=== PATIENT | female | born 1930 | race Caucasian/White ===

== ENCOUNTER 2017-10-20 16:15 | Emergency (ER) | payer OTHER ==
[~2017-10-20] VITALS: Ht 162.6 cm; Wt 63.5 kg
[~2017-10-20 16:15] MED LIST: ACETAMINOPHEN325 M1 PO; ALPRAZOLAM PO; AMBEREN; AMBEREN PO; APAP500; AUGMENTIN 875875 MG PO; B-COMPLEX-VITA1 EACH PO; BACTRIM DS TAB1 EACH PO; BISAC-EVAC10 MG; CALCIUM OYSTER500 MG PO; CALCIUM PO; CARITA; CARITA PO; CIPROFLOXACIN500 M1 PO; COLACE100 MG PO; DILTIAZEM 24HR180 MG; DILTIAZEM ER120 M1 PO; DILTIAZEM ER180 MG PO; DULCOLAX STOOL100 MG PO; FISH OIL 1,001000 M1 PO; FISHOIL PO; GLUCOSAMINE &1 EACH PO; GLUCOSAMINE S1000 M2 PO; IBUPROFEN 400400 M2 PO; LEVOTHYROXINE 0.1 MG PO; LEXAPRO 10 MG T10 MG PO; LEXAPRO20 MG PO; LOVENOX SQ; LYRICA; LYRICA100 MG PO; MEDROLDOSEPACK PO; MIRALAX255 GM; MISC; MULTIVITAMINS OR; MULTIVITAMINS PO; NORCO 5-325 TA1 EACH PO; OMEPRAZOLE20 M2 PO; PREMARIN VAGI42.5 G1 VAG; PREVACID 30MG C30 M1 PO; PROAIR HFA8.5 GM INH; REFRESH CLASSI1 EACH OPHTHALMIC; ROXICODONE5 M1 PO; SEE COMMENT; SEE COMMENTS; SYMBICORT80 MCG/4.1 INH; TUMS PO; VAGICAINE CREAM28 GM TOP; VISION; XANAX 0.25 MG0.25 MG PO; ZOFRAN4 MG PO; [UNRECOGNIZED DRUG - OTHER]; [UNRECOGNIZED DRUG - OTHER] PO
[2017-10-20 18:01] VITALS: BP 138/63
== END 2017-10-20 18:01 | disposition home or self-care (01) ==
LOC: M.ERS 16:15
DX: S09.8XXA Other specified injuries of head, initial encounter (principal); I10 Essential (primary) hypertension; K21.9 Gastro-esophageal reflux disease without esophagitis; J45.909 Unspecified asthma, uncomplicated; F41.0 Panic disorder [episodic paroxysmal anxiety]; Z96.643 Presence of artificial hip joint, bilateral; Z96.622 Presence of left artificial elbow joint; Z85.841 Personal history of malignant neoplasm of brain; Z88.2 Allergy status to sulfonamides; W01.190A Fall on same level from slipping, tripping and stumbling with subsequent striking against furniture, initial encounter; Y93.89 Activity, other specified; Y92.89 Other specified places as the place of occurrence of the external cause; Y99.8 Other external cause status

== ENCOUNTER → 2017-11-25 | Outpatient (CLI) | payer OTHER | LOC: M.RAD 10:50 | DX: Z12.31 Encounter for screening mammogram for malignant neoplasm of breast (principal) ==

== ENCOUNTER → 2018-07-01 | Outpatient (CLI) | payer OTHER | LOC: M.ULTRA 14:31 | DX: M79.605 Pain in left leg (principal); M79.89 Other specified soft tissue disorders ==

== ENCOUNTER → 2018-09-07 | Outpatient (CLI) | payer OTHER | LOC: M.MRI 16:12 | DX: S83.262A Peripheral tear of lateral meniscus, current injury, left knee, initial encounter (principal); M17.12 Unilateral primary osteoarthritis, left knee; R60.0 Localized edema; M25.462 Effusion, left knee; W19.XXXA Unspecified fall, initial encounter; Y93.89 Activity, other specified; Y92.89 Other specified places as the place of occurrence of the external cause; Y99.8 Other external cause status ==

== ENCOUNTER 2019-03-23 22:44 | Inpatient (IN) | payer OTHER ==
[~2019-03-23] VITALS: Ht 162.6 cm; Wt 63.4 kg
--- NOTE | ~2019-03-23 | CON ---
[address] [address] CONSULTATION Name: BREANA ZAPATA Room: [address] IN ..#: [id number] Admission: 03/23/19 Attend Phys: José Miguel Zamora MD Discharge: Date of : 31 Report #: [id number] THIS REPORT FOR: //name// CC: José Miguel Mclean [facility] DICTATED BY: Mary Jane Hou [facility] DATE OF SERVICE: 03/24/2019 Please note at the time of this dictation, the patient was seen and physically examined by myself. REASON FOR CONSULTATION: Rectal bleeding. HISTORY OF PRESENT ILLNESS: This is an 88-year-old female presented to the Emergency Room with having some rectal bleeding, which she noted on a pad over the last 2 days. She states it is bright red in nature and she states that she notices it more every time she urinates and with wiping. Her bowels have been soft and formed and moving daily, last bowel movement was yesterday a.m. She denies any pain with any defecation or with the bleeding at this time. She denies any nausea, vomiting, abdominal pain, fever or chills at this time. The patient did undergo a colonoscopy back in 2010, by Dr. Vidal that showed sigmoid diverticulosis and internal hemorrhoids, which she was banded for x 4. She does have a history of colon polyps in the past that were tubular adenoma. The patient was recently placed on Eliquis on 03/03/2019, for a TIA. ALLERGIES: SULFA. MEDICATIONS: From home, estrogen, glucosamine, omeprazole, Lyrica, multivitamin, Dulcolax stool softener, Synthroid, diltiazem, Lexapro, Eliquis, Lipitor, Xanax. PAST MEDICAL HISTORY: Recent transient ischemic attack, history of SVT, anxiety, asthma, GERD, hypertension, history of a brain tumor, blind behind the left eye. PAST SURGICAL HISTORY: Right total hip, she has had a revision; left elbow replacement; left total hip replacement; cataracts; hysterectomy; cystocele and rectocele repair; cholecystectomy and a thyroidectomy. FAMILY HISTORY: Negative for any GI or female cancers. SOCIAL HISTORY: , lives with her . Denies any alcohol, tobacco [place] [address] CONSULTATION Name: BREANA ZAPATA Jessie Room: [address]#: [id number] Admission: 03/23/19 Attend Phys: José Miguel Zamora MD Discharge: Date of : 31 Report #: [id number] REVIEW OF SYSTEMS: Twelve-point review of systems is essentially negative except what is mentioned in the HPI. PHYSICAL EXAMINATION: VITAL SIGNS: Temperature 36.6, pulse 80, respirations 18, blood pressure 129/51. HEART: Regular rate and rhythm. LUNGS: Clear. ABDOMEN: Soft, positive bowel sounds in all 4 quadrants with no masses or tenderness noted. RECTAL: Noted some bright red blood with apparent likely external hemorrhoids noted. Internal exam noting some blood, but no masses or tenderness noted on internal exam. LABORATORY DATA: Hemoglobin 14.5, white count 5.5, platelets 198, GFR 79. Total bilirubin 0.4, alkaline phosphatase 153, ALT 28, AST is 23. PT is 10.3, INR is 1. IMPRESSION: 1. Rectal bleeding. 2. Hemorrhoids. 3. Anticoagulant therapy, Eliquis for transient ischemic attack started on 03/03. 4. History of colon polyps, tubular adenoma in the past. PLAN: 1. Clear liquids. 2. We will await Neurology input regarding anticoagulant therapy. 3. Further recommendations to follow after Dr. Hill sees the patient later today. Thank you for allowing us to participate in this patient's care. Please do not hesitate to call with any questions in regard to this consult. By: 1100 1510Javier Hill DO /nt
[2019-03-23 22:52] VITALS: BP 145/66
[2019-03-23] MEDS ORDERED: ELIQUIS5 MG PO (22:59)
[2019-03-23] MEDS ORDERED: LIPITOR80 MG PO (23:00)
[2019-03-23] MEDS ORDERED: XANAX 0.25 MG0.25 MG PO (23:00)
[2019-03-23 23:45] LABS: ABSOLUTE BASOPHILS 0.1 thou/uL (0.0-0.2); ABSOLUTE EOSINOPHILS 0.2 thou/uL (0.0-0.7); ABSOLUTE LYMPHOCYTES 3.7 thou/uL (0.8-5.3); ABSOLUTE MONOCYTES 0.6 thou/uL (0.0-1.2); ABSOLUTE NEUTROPHILS 3.6 thou/uL (1.6-8.1); EOSINOPHILS 2.6 %; HEMATOCRIT 41.1 % (37.0-47.0); MCH 30.1 pg (26.0-34.0); MCV 88.6 fL (80.0-100.0); MONOCYTES 7.8 %; MPV 8.5 fl. (7.2-11.1); NUCLEATED RBCS 0 /100WBC; PLATELET COUNT* 203 thou/uL (150-400); POLYS 43.6 %; RBC 4.64 mil/uL (4.20-5.00); RDW-CV 13.8 % (10.5-14.5); WBC 8.2 thou/uL (4.0-11.0)
[2019-03-23 23:55] LABS: CALCIUM 8.9 mg/dL (8.5-10.1); CREATININE 0.8 mg/dL (0.6-1.3); POTASSIUM 3.6 mmol/L (3.5-5.1)
[2019-03-23 23:58] LABS: APTT 27.1 Seconds (25.0-31.3); PROTIME 10.3 Seconds (9.20-11.50)
[2019-03-24 00:08] LABS: ALBUMIN 3.4 g/dL (3.4-5.0); TOTAL BILIRUBIN 0.4 mg/dL (<0.1-1.0); TOTAL PROTEIN 6.9 g/dL (6.4-8.2)
[2019-03-24 02:13] VITALS: BP 145/58
[2019-03-24 02:30] VITALS: BP 129/66
[2019-03-24 04:00] VITALS: BP 158/70
[2019-03-24 07:57] VITALS: BP 129/51
[2019-03-24 08:40] LABS: HEMATOCRIT 42.1 % (37.0-47.0); HEMOGLOBIN 14.5 gm/dL (12.0-15.0); MCH 30.5 pg (26.0-34.0); MCHC 34.4 g/dL (28.0-37.0); MCV 88.7 fL (80.0-100.0); MPV 8.8 fl. (7.2-11.1); RBC 4.74 mil/uL (4.20-5.00); RDW-CV 13.7 % (10.5-14.5); WBC 5.5 thou/uL (4.0-11.0)
[2019-03-24 08:49] LABS: CALCIUM 9.1 mg/dL (8.5-10.1); CREATININE 0.7 mg/dL (0.6-1.3); POTASSIUM 3.6 mmol/L (3.5-5.1)
[2019-03-24 12:50] LABS: URINE BILIRUBIN NEGATIVE (Negative); URINE BLOOD TRACE (Negative); URINE CLARITY CLEAR; URINE COLOR YELLOW; URINE GLUCOSE-RANDOM NEGATIVE (Negative); URINE KETONES NEGATIVE (Negative); URINE LEUKOCYTES-REFLEX NEGATIVE (Negative); URINE NITRITE-REFLEX NEGATIVE (Negative); URINE PROTEIN NEGATIVE (Negative); URINE SPECIFIC GRAVITY <= 1.005 (1.005-1.030); URINE UROBILINOGEN 0.2 E.U./dl (0.2-1.0)
[2019-03-24 15:48] VITALS: BP 134/66
[2019-03-24 20:00] VITALS: BP 135/58
[2019-03-25] VITALS (7 sets, daily range): BP systolic 116–148; BP diastolic 52–69
[2019-03-25 04:51] LABS: HEMATOCRIT 40.1 % (37.0-47.0); HEMOGLOBIN 13.9 gm/dL (12.0-15.0); MCH 30.5 pg (26.0-34.0); MCHC 34.7 g/dL (28.0-37.0); RBC 4.56 mil/uL (4.20-5.00); WBC 7.6 thou/uL (4.0-11.0)
[2019-03-25 04:59] LABS: CALCIUM 9.2 mg/dL (8.5-10.1); CREATININE 0.6 mg/dL (0.6-1.3); POTASSIUM 3.3 mmol/L (3.5-5.1)
[2019-03-26] VITALS: BP 122/52
[2019-03-26 04:00] VITALS: BP 112/47
[2019-03-26 04:22] LABS: ABSOLUTE EOSINOPHILS 0.1 thou/uL (0.0-0.7); ABSOLUTE LYMPHOCYTES 2.8 thou/uL (0.8-5.3); ABSOLUTE MONOCYTES 0.6 thou/uL (0.0-1.2); ABSOLUTE NEUTROPHILS 4.1 thou/uL (1.6-8.1); BASOPHILS 0.6 %; EOSINOPHILS 1.1 %; HEMATOCRIT 40.2 % (37.0-47.0); HEMOGLOBIN 13.7 gm/dL (12.0-15.0); LYMPHOCYTES 36.5 %; MCH 30.3 pg (26.0-34.0); MCHC 34.1 g/dL (28.0-37.0); MCV 88.8 fL (80.0-100.0); MONOCYTES 8.4 %; MPV 8.7 fl. (7.2-11.1); NUCLEATED RBCS 0 /100WBC; PLATELET COUNT* 211 thou/uL (150-400); POLYS 53.4 %; RBC 4.52 mil/uL (4.20-5.00); RDW-CV 13.7 % (10.5-14.5); WBC 7.7 thou/uL (4.0-11.0)
[2019-03-26 04:34] LABS: CALCIUM 9.3 mg/dL (8.5-10.1); CREATININE 0.7 mg/dL (0.6-1.3); POTASSIUM 3.7 mmol/L (3.5-5.1)
[2019-03-26 08:00] VITALS: BP 117/58
--- NOTE | 2019-03-26 11:01 | CON ---
[address] [address] CONSULTATION Name: BREANA ZAPATA Room: [address] IN .R.#: [id number] Admission: 03/23/19 Attend Phys: José Miguel Zamora MD Discharge: Date of : 31 Report #: [id number] THIS REPORT FOR: //name// CC: José Miguel Velasquez DATE OF SERVICE: 03/25/2019 HISTORY OF PRESENT ILLNESS: Thank you for allowing us to see the patient. She is a very pleasant 88-year-old female with a history of paroxysmal atrial fibrillation, supraventricular tachycardia and recent left hemispheric CVA with a total clearing of symptoms after hospitalization at [facility]. The patient was placed on Eliquis 5 mg b.i.d. She developed rectal bleeding and sought admission in that context. There was no significant depression in hemoglobin with the stools were red. She has had prior colonoscopic evidence for hemorrhoids. The patient denies chest pain or dyspnea. She denies any awareness of rapid or irregular pulse. She notes the clearing of the aforementioned neurologic symptoms. There is underlying hypertension and hypercholesterolemia. Prior medicines have included Eliquis 5 mg b.i.d., atorvastatin 80 mg daily, diltiazem 180 mg b.i.d., L-thyroxine 0.1 mg daily and a number of noncardiac medicines including docusate, Lexapro, glucosamine, estrogens, multivitamin, omeprazole, and Lyrica. PAST MEDICAL HISTORY: Remarkable for hypothyroidism, prior CVA, paroxysmal atrial fibrillation, gastroesophageal reflux disease and severe anxiety. SOCIAL HISTORY: The patient is . She is a nonsmoker and nondrinker. REVIEW OF SYSTEMS: Remarkable for the following positives. RESPIRATORY: She notes some wheezing. GASTROINTESTINAL: History of gastroesophageal reflux disease. ALLERGIC AND IMMUNOLOGIC: She notes medication allergies to SULFA. PSYCHIATRIC: There is a history of chronic anxiety. EYES: She has a diminution in visual acuity. Remainder is unremarkable. PHYSICAL EXAMINATION: GENERAL: Demonstrates an elderly female in no acute distress. VITAL SIGNS: Blood pressure 140/70, pulse rate 74 and regular, respirations are 18 per minute. NECK: Jugular venous [place] [address] CONSULTATION Name: BREANA ZAPATA Room: [address]#: [id number] Admission: 03/23/19 Attend Phys: José Miguel Zamora MD Discharge: Date of : 31 Report #: [id number] CHEST: Clear. CARDIAC: Reveals normal first and second heart sounds with a faint early systolic murmur, without rubs or gallops. ABDOMEN: Mildly obese. EXTREMITIES: Without edema with intact peripheral pulses. There are no deforming arthritic changes. No petechiae or ecchymosis are noted. LABORATORY DATA: Remarkable for hemoglobin of 13.9, white blood cell count of 7600 with 200,000 platelets. IMPRESSION: 1. Recent left hemispheric cerebrovascular accident. 2. Paroxysmal atrial fibrillation. 3. History of supraventricular tachycardia. 4. Hypercholesterolemia. 5. Chronic anxiety. 6. Hypothyroidism. 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 The patient is reluctant to do so by virtue of the GI bleeding. I reinforced the evidence for lack of significant bleed as the hemoglobin did not drop significantly. Nevertheless, she is extremely reluctant to take an oral anticoagulant. We talked at length, and she agreed to start the Eliquis at 2.5 mg b.i.d. with the hope that we can up titrate to the appropriate therapeutic dose for her 5 mg b.i.d. Thank you for allowing us to see the patient in cardiovascular assessment. <ELECTRONICALLY SIGNED> By: Chidi Owen MD, [facility] 03/26/19 1101 1036 1234Chidi Owen MD, FAC /nt
[2019-03-26 12:31] VITALS: BP 133/66
[2019-03-26 16:48] VITALS: BP 141/64
[2019-03-26 20:00] VITALS: BP 137/69
[2019-03-27] VITALS: BP 140/78
[2019-03-27 04:00] VITALS: BP 123/53
[2019-03-27 05:36] LABS: HEMATOCRIT 38.2 % (37.0-47.0); MCH 30.3 pg (26.0-34.0); MCHC 34.1 g/dL (28.0-37.0); MCV 88.9 fL (80.0-100.0); MPV 8.9 fl. (7.2-11.1); PLATELET COUNT* 197 thou/uL (150-400); RDW-CV 13.9 % (10.5-14.5); WBC 6.7 thou/uL (4.0-11.0)
[2019-03-27 06:03] LABS: CREATININE 0.6 mg/dL (0.6-1.3); MAGNESIUM 1.7 mg/dL (1.8-2.4); POTASSIUM 3.4 mmol/L (3.5-5.1)
[2019-03-27 08:00] VITALS: BP 145/70
[2019-03-27 10:19] LABS: ABSOLUTE MONOCYTES 0.6 thou/uL (0.0-1.2); ABSOLUTE NEUTROPHILS 3.8 thou/uL (1.6-8.1); LYMPHOCYTES 30.5 %; MONOCYTES 8.9 %; POLYS 57.1 %
[2019-03-27 10:20] LABS: ABSOLUTE BASOPHILS 0.1 thou/uL (0.0-0.2); ABSOLUTE EOSINOPHILS 0.2 thou/uL (0.0-0.7); BASOPHILS 1.1 %; EOSINOPHILS 2.4 %
[2019-03-27 14:00] VITALS: BP 138/61
[2019-03-27 16:03] VITALS: BP 142/61
[2019-03-28] VITALS: BP 142/60
[2019-03-28 04:00] VITALS: BP 150/60
[2019-03-28 08:29] VITALS: BP 135/51
[2019-03-28 12:25] VITALS: BP 142/73
[2019-03-28 20:00] VITALS: BP 143/60
[2019-03-29] VITALS (7 sets, daily range): BP systolic 126–151; BP diastolic 55–81
[2019-03-29 10:54] LABS: ABSOLUTE LYMPHOCYTES 1.8 thou/uL (0.8-5.3); ABSOLUTE MONOCYTES 0.7 thou/uL (0.0-1.2); ABSOLUTE NEUTROPHILS 7.8 thou/uL (1.6-8.1); BASOPHILS 0.2 %; EOSINOPHILS 0.1 %; HEMATOCRIT 37.1 % (37.0-47.0); HEMOGLOBIN 13.2 gm/dL (12.0-15.0); LYMPHOCYTES 17.4 %; MCH 30.3 pg (26.0-34.0); MCHC 35.7 g/dL (28.0-37.0); MCV 84.8 fL (80.0-100.0); MONOCYTES 6.9 %; MPV 7.9 fl. (7.2-11.1); NUCLEATED RBCS 0 /100WBC; PLATELET COUNT* 181 thou/uL (150-400); POLYS 75.4 %; RBC 4.37 mil/uL (4.20-5.00); RDW-CV 13.2 % (10.5-14.5); WBC 10.3 thou/uL (4.0-11.0)
[2019-03-29 11:12] LABS: ALBUMIN 3.5 g/dL (3.4-5.0); CALCIUM 8.2 mg/dL (8.5-10.1); CREATININE 0.5 mg/dL (0.6-1.3); TOTAL BILIRUBIN 0.9 mg/dL (<0.1-1.0); TOTAL PROTEIN 6.6 g/dL (6.4-8.2)
[2019-03-29 11:15] LABS: POTASSIUM 2.4 mmol/L (3.5-5.1)
[2019-03-30] VITALS: BP 133/62
[2019-03-30 04:00] VITALS: BP 133/72
[2019-03-30 05:12] LABS: HEMATOCRIT 36.7 % (37.0-47.0); MCH 30.4 pg (26.0-34.0); MCHC 35.4 g/dL (28.0-37.0); MCV 85.8 fL (80.0-100.0); MPV 8.9 fl. (7.2-11.1); RBC 4.27 mil/uL (4.20-5.00); RDW-CV 13.5 % (10.5-14.5); WBC 9.2 thou/uL (4.0-11.0)
[2019-03-30 05:30] LABS: ALBUMIN 3.2 g/dL (3.4-5.0); CREATININE 0.6 mg/dL (0.6-1.3); MAGNESIUM 1.9 mg/dL (1.8-2.4); POTASSIUM 3.9 mmol/L (3.5-5.1); TOTAL BILIRUBIN 0.7 mg/dL (<0.1-1.0); TOTAL PROTEIN 6.2 g/dL (6.4-8.2)
[2019-03-30 08:00] VITALS: BP 132/60
[2019-03-30] MEDS ORDERED: TRAMADOL 50 MG50 MG PO (10:35)
[2019-03-30] MEDS ORDERED: ELIQUIS5 MG PO (10:35)
[2019-03-30 11:45] VITALS: BP 140/60
[2019-03-30 12:00] VITALS: BP 135/63
[2019-03-30 12:47] VITALS: BP 140/60
== END 2019-03-30 13:30 | disposition home health service (06) | DRG 393 ==
LOC: M.ERS 22:44 → M.2W 23:53 → M.TBA-ER 23:53 → M.2W 03-24 02:22
PROVIDERS: Internal Medicine; Internal Medicine Gastroenterology; Personal Emergency Response Attendant; ADMIT Internal Medicine
PROC: 0DJD8ZZ Inspection of Lower Intestinal Tract, Via Natural or Artificial Opening Endoscopic (ICD-10-PCS; principal; 2019-03-27)
PROC: 0D758ZZ Dilation of Esophagus, Via Natural or Artificial Opening Endoscopic (ICD-10-PCS; principal; 2019-03-27)
DX: K64.8 Other hemorrhoids (principal); K57.31 Diverticulosis of large intestine without perforation or abscess with bleeding; D68.69 Other thrombophilia; Q21.1 Atrial septal defect; Q39.9 Congenital malformation of esophagus, unspecified; Z96.622 Presence of left artificial elbow joint; I10 Essential (primary) hypertension; K21.9 Gastro-esophageal reflux disease without esophagitis; J45.909 Unspecified asthma, uncomplicated; F41.9 Anxiety disorder, unspecified; E78.00 Pure hypercholesterolemia, unspecified; I48.0 Paroxysmal atrial fibrillation; R13.10 Dysphagia, unspecified; K44.9 Diaphragmatic hernia without obstruction or gangrene; E89.0 Postprocedural hypothyroidism; R13.14 Dysphagia, pharyngoesophageal phase; K64.1 Second degree hemorrhoids; K64.4 Residual hemorrhoidal skin tags; H54.62 Unqualified visual loss, left eye, normal vision right eye; Z96.642 Presence of left artificial hip joint; Z98.42 Cataract extraction status, left eye; Z79.01 Long term (current) use of anticoagulants; Z98.41 Cataract extraction status, right eye; Z90.710 Acquired absence of both cervix and uterus; Z90.49 Acquired absence of other specified parts of digestive tract; Z86.73 Personal history of transient ischemic attack (TIA), and cerebral infarction without residual deficits; Z88.2 Allergy status to sulfonamides; Z88.8 Allergy status to other drugs, medicaments and biological substances; Z86.010 Personal history of colon polyps; Z79.899 Other long term (current) drug therapy

== ENCOUNTER 2019-05-30 17:14 | Inpatient (IN) | payer OTHER ==
[~2019-05-30] VITALS: Ht 162.6 cm; Wt 66.7 kg
[~2019-05-30 17:14] MED LIST changes: +ELIQUIS5 MG PO; +LIPITOR80 MG PO; +TRAMADOL 50 MG50 MG PO
[2019-05-30 17:23] VITALS: BP 144/71
[2019-05-30 17:37] LABS: URINE BILIRUBIN NEGATIVE (Negative); URINE BLOOD NEGATIVE (Negative); URINE CLARITY SL CLOUDY; URINE COLOR YELLOW; URINE GLUCOSE-RANDOM NEGATIVE (Negative); URINE KETONES NEGATIVE (Negative); URINE PROTEIN NEGATIVE (Negative); URINE UROBILINOGEN 0.2 E.U./dl (0.2-1.0)
[2019-05-30 17:39] LABS: URINE LEUKOCYTES-REFLEX 3+ (Negative); URINE NITRITE-REFLEX POSITIVE (Negative)
[2019-05-30 17:45] LABS: ABSOLUTE BASOPHILS 0.1 thou/uL (0.0-0.2); ABSOLUTE EOSINOPHILS 0.2 thou/uL (0.0-0.7); ABSOLUTE MONOCYTES 0.6 thou/uL (0.0-1.2); ABSOLUTE NEUTROPHILS 4.2 thou/uL (1.6-8.1); BASOPHILS 1.2 %; EOSINOPHILS 2.4 %; HEMATOCRIT 44.4 % (37.0-47.0); HEMOGLOBIN 15.2 gm/dL (12.0-15.0); LYMPHOCYTES 36.7 %; MCH 30.2 pg (26.0-34.0); MCHC 34.3 g/dL (28.0-37.0); MCV 88.2 fL (80.0-100.0); MONOCYTES 7.8 %; MPV 8.1 fl. (7.2-11.1); NUCLEATED RBCS 0 /100WBC; PLATELET COUNT* 310 thou/uL (150-400); POLYS 51.9 %; RBC 5.03 mil/uL (4.20-5.00); RDW-CV 13.9 % (10.5-14.5); WBC 8.1 thou/uL (4.0-11.0)
[2019-05-30 17:45] LABS: MUCUS None Seen strn/LPF (None Seen); SQUAMOUS >10 Many /LPF (0-3)
[2019-05-30 17:46] LABS: BACTERIA-REFLEX >30 Many /HPF (None Seen); CASTS None Seen /LPF (None Seen); CRYSTALS None Seen /LPF (None Seen); URINE RBC None Seen /HPF (0-2); URINE WBC-REFLEX >25 Many /HPF (0-5)
[2019-05-30 17:53] LABS: CALCIUM 8.9 mg/dL (8.5-10.1); CREATININE 0.7 mg/dL (0.6-1.3); POTASSIUM 3.9 mmol/L (3.5-5.1)
[2019-05-30 17:58] LABS: ALBUMIN 3.8 g/dL (3.4-5.0); TOTAL BILIRUBIN 0.3 mg/dL (<0.1-1.0); TOTAL PROTEIN 7.6 g/dL (6.4-8.2)
[2019-05-30 20:02] VITALS: BP 125/60
[2019-05-30 20:20] VITALS: BP 150/73
[2019-05-31 09:10] VITALS: BP 153/69
[2019-05-31] MEDS ORDERED: TIMOLOL MA0.25 %/52 OPHTHALMIC (09:30)
[2019-05-31 15:33] VITALS: BP 138/64
[2019-05-31 20:05] VITALS: BP 124/61
[2019-06-01 04:20] LABS: CALCIUM 8.3 mg/dL (8.5-10.1); CREATININE 0.6 mg/dL (0.6-1.3); MAGNESIUM 2.2 mg/dL (1.8-2.4); POTASSIUM 3.5 mmol/L (3.5-5.1)
[2019-06-01 08:11] VITALS: BP 111/71
[2019-06-01 16:00] VITALS: BP 95/43
[2019-06-01 21:40] VITALS: BP 134/66
[2019-06-02 08:45] VITALS: BP 136/71
[2019-06-02] MEDS ORDERED: CIPRO500 MG PO (12:15)
[2019-06-02 13:44] VITALS: BP 136/71
[2019-06-02 14:52] VITALS: BP 136/71
== END 2019-06-02 14:55 | disposition home or self-care (01) | DRG 689 ==
LOC: M.ERS 17:14 → M.TBA-ER 18:55 → M.3W 18:55
PROVIDERS: Internal Medicine; Personal Emergency Response Attendant; ADMIT Internal Medicine
DX: N30.90 Cystitis, unspecified without hematuria (principal); G92 Toxic encephalopathy; B37.2 Candidiasis of skin and nail; Z96.642 Presence of left artificial hip joint; I10 Essential (primary) hypertension; J45.909 Unspecified asthma, uncomplicated; E89.0 Postprocedural hypothyroidism; F41.9 Anxiety disorder, unspecified; K21.9 Gastro-esophageal reflux disease without esophagitis; G62.9 Polyneuropathy, unspecified; K57.90 Diverticulosis of intestine, part unspecified, without perforation or abscess without bleeding; I48.91 Unspecified atrial fibrillation; F41.1 Generalized anxiety disorder; F32.9 Major depressive disorder, single episode, unspecified; E86.9 Volume depletion, unspecified; K44.9 Diaphragmatic hernia without obstruction or gangrene; Z98.42 Cataract extraction status, left eye; Z87.81 Personal history of (healed) traumatic fracture; Z98.41 Cataract extraction status, right eye; Z90.710 Acquired absence of both cervix and uterus; Z90.49 Acquired absence of other specified parts of digestive tract; Z86.73 Personal history of transient ischemic attack (TIA), and cerebral infarction without residual deficits; Z88.2 Allergy status to sulfonamides; Z88.8 Allergy status to other drugs, medicaments and biological substances

== ENCOUNTER 2019-08-29 22:25 | Emergency (ER) | payer OTHER ==
[~2019-08-29] VITALS: Ht 162.6 cm; Wt 64.0 kg
[~2019-08-29 22:25] MED LIST changes: +CIPRO500 MG PO; +TIMOLOL MA0.25 %/52 OPHTHALMIC
[2019-08-29] MEDS ORDERED: TESSALON PERLE100 M1 PO (23:09)
[2019-08-29] MEDS ORDERED: DORYX MPC120 MG PO ×2 (23:09→23:10)
[2019-08-30 00:09] LABS: URINE BILIRUBIN NEGATIVE (Negative); URINE BLOOD NEGATIVE (Negative); URINE CLARITY CLEAR; URINE COLOR YELLOW; URINE GLUCOSE-RANDOM NEGATIVE (Negative); URINE KETONES NEGATIVE (Negative); URINE LEUKOCYTES-REFLEX NEGATIVE (Negative); URINE NITRITE-REFLEX NEGATIVE (Negative); URINE PROTEIN NEGATIVE (Negative); URINE SPECIFIC GRAVITY <= 1.005 (1.005-1.030); URINE UROBILINOGEN 0.2 E.U./dl (0.2-1.0)
[2019-08-30] MEDS ORDERED: ZPAK PO (01:23)
[2019-08-30] MEDS ORDERED: PEPCID40 MG PO (01:23)
[2019-08-30 01:34] VITALS: BP 177/94
== END 2019-08-30 01:34 | disposition home or self-care (01) ==
LOC: M.ERS 22:25
PROVIDERS: Emergency Medicine
DX: J06.9 Acute upper respiratory infection, unspecified (principal); R10.13 Epigastric pain; T36.4X5A Adverse effect of tetracyclines, initial encounter; T48.3X5A Adverse effect of antitussives, initial encounter; I10 Essential (primary) hypertension; K21.9 Gastro-esophageal reflux disease without esophagitis; J45.909 Unspecified asthma, uncomplicated; F41.0 Panic disorder [episodic paroxysmal anxiety]; I48.91 Unspecified atrial fibrillation; G62.9 Polyneuropathy, unspecified; Z96.643 Presence of artificial hip joint, bilateral; Z90.710 Acquired absence of both cervix and uterus; Z86.73 Personal history of transient ischemic attack (TIA), and cerebral infarction without residual deficits; Z88.1 Allergy status to other antibiotic agents; Z88.2 Allergy status to sulfonamides; Z90.49 Acquired absence of other specified parts of digestive tract; Y92.89 Other specified places as the place of occurrence of the external cause

== ENCOUNTER 2020-02-27 13:32 | Inpatient (IN) | payer OTHER ==
[~2020-02-27] VITALS: Ht 160 cm; Wt 72.7 kg
--- NOTE | ~2020-02-27 | PROC ---
[address] [address] PROCEDURE REPORT Name: BREANA ZAPATA Room: [address] IN M.R.#: [id number] Admission: 02/27/20 Attend Phys: Melissa Tenorio MD Discharge: 02/29/20 Date of : 31 Report #: [id number] THIS REPORT FOR: //name// cc: Nerissa Velasquez Tara DO ~ THIS REPORT FOR: //name// For GI report, please see the Provation report in Perceptive 7 content. By: 0638Medical Records Staff NAYA /PAULINA
[~2020-02-27 13:32] MED LIST changes: +DORYX MPC120 MG PO; +PEPCID40 MG PO; +TESSALON PERLE100 M1 PO; +ZPAK PO
[2020-02-27 13:42] VITALS: BP 148/56
[2020-02-27 13:57] LABS: ABSOLUTE BASOPHILS 0.1 thou/uL (0.0-0.2); ABSOLUTE EOSINOPHILS 0.1 thou/uL (0.0-0.7); ABSOLUTE LYMPHOCYTES 2.4 thou/uL (0.8-5.3); ABSOLUTE MONOCYTES 0.6 thou/uL (0.0-1.2); ABSOLUTE NEUTROPHILS 3.8 thou/uL (1.6-8.1); BASOPHILS 0.8 %; HEMATOCRIT 43.6 % (37.0-47.0); HEMOGLOBIN 15.1 gm/dL (12.0-15.0); LYMPHOCYTES 34.5 %; MCH 31.4 pg (26.0-34.0); MCHC 34.7 g/dL (28.0-37.0); MCV 90.6 fL (80.0-100.0); MONOCYTES 8.9 %; MPV 8.5 fl. (7.2-11.1); NUCLEATED RBCS 0 /100WBC; PLATELET COUNT* 206 thou/uL (150-400); POLYS 53.8 %; RBC 4.81 mil/uL (4.20-5.00); RDW-CV 13.5 % (10.5-14.5); WBC 7.1 thou/uL (4.0-11.0)
[2020-02-27 14:07] LABS: APTT 25.6 Seconds (25.0-31.3); CALCIUM 8.4 mg/dL (8.5-10.1); CREATININE 0.8 mg/dL (0.6-1.3); POTASSIUM 4.4 mmol/L (3.5-5.1); PROTIME 10.6 Seconds (9.20-11.50)
[2020-02-27 14:12] LABS: ALBUMIN 3.6 g/dL (3.4-5.0); TOTAL BILIRUBIN 0.3 mg/dL (<0.1-1.0); TOTAL PROTEIN 7.3 g/dL (6.4-8.2)
--- NOTE | 2020-02-27 14:50 | NUR ---
GAGE NOTIFIED UPON PT RETURN FROM CT. PT CONNECTED TO BP AND PULSE OX SHE WAS PRIOR TO CT
[2020-02-27 15:02] LABS: URINE BILIRUBIN NEGATIVE (Negative); URINE BLOOD NEGATIVE (Negative); URINE CLARITY CLEAR; URINE COLOR YELLOW; URINE GLUCOSE-RANDOM NEGATIVE (Negative); URINE KETONES NEGATIVE (Negative); URINE LEUKOCYTES-REFLEX NEGATIVE (Negative); URINE NITRITE-REFLEX NEGATIVE (Negative); URINE PROTEIN NEGATIVE (Negative); URINE SPECIFIC GRAVITY <= 1.005 (1.005-1.030); URINE UROBILINOGEN 0.2 E.U./dl (0.2-1.0)
[2020-02-27 17:47] VITALS: BP 141/68
[2020-02-27 19:35] VITALS: BP 137/54
[2020-02-28] VITALS: BP 100/43
--- NOTE | 2020-02-28 03:13 | NUR ---
ASSUMED CARE OF PT AT 1900. PT IS ALERT AND ORIENTED. VSS. PERRLA. NO COMPLAINTS OF PAIN. PT IS IN SINUS RYTHM ON THE TELEMETRY. PT IS RESTING COMFORTABLY IN BED. RESPIRATIONS ARE EVEN AND NONLABORED. WILL CONTINUE TO MONITOR PT.
[2020-02-28 04:00] VITALS: BP 130/67
[2020-02-28 04:50] LABS: HEMATOCRIT 40.9 % (37.0-47.0); HEMOGLOBIN 14.3 gm/dL (12.0-15.0); MCH 31.4 pg (26.0-34.0); MCHC 34.9 g/dL (28.0-37.0); MCV 89.8 fL (80.0-100.0); MPV 8.6 fl. (7.2-11.1); RBC 4.55 mil/uL (4.20-5.00); RDW-CV 13.8 % (10.5-14.5); WBC 7.3 thou/uL (4.0-11.0)
[2020-02-28 05:26] LABS: ALBUMIN 3.2 g/dL (3.4-5.0); CALCIUM 8.3 mg/dL (8.5-10.1); CREATININE 0.8 mg/dL (0.6-1.3); MAGNESIUM 2.1 mg/dL (1.8-2.4); POTASSIUM 3.6 mmol/L (3.5-5.1); TOTAL BILIRUBIN 0.3 mg/dL (<0.1-1.0); TOTAL PROTEIN 6.5 g/dL (6.4-8.2)
[2020-02-28 08:00] VITALS: BP 142/77
--- NOTE | 2020-02-28 14:57 | NUR ---
PT.OFF FLOOR FOR GI PROCEDURE. CM WILL SEE IN AM.
[2020-02-28 20:30] VITALS: BP 125/71
[2020-02-29 05:42] LABS: HEMOGLOBIN 13.5 gm/dL (12.0-15.0); MCH 31.3 pg (26.0-34.0); MCHC 34.7 g/dL (28.0-37.0); MCV 90.2 fL (80.0-100.0); MPV 8.7 fl. (7.2-11.1); RBC 4.33 mil/uL (4.20-5.00); RDW-CV 13.8 % (10.5-14.5); WBC 6.7 thou/uL (4.0-11.0)
[2020-02-29 06:04] LABS: CALCIUM 8.1 mg/dL (8.5-10.1); CREATININE 0.5 mg/dL (0.6-1.3); MAGNESIUM 2.3 mg/dL (1.8-2.4); POTASSIUM 3.5 mmol/L (3.5-5.1)
[2020-02-29] MEDS ORDERED: ANUSOL-HC25 MG RECTAL (08:02)
--- NOTE | 2020-02-29 08:24 | NUR ---
PATIENT SLEPT MOST OF THE NIGHT. IV REMAINS SALINE LOCKED. PATIENT SHOULD DISCHARGE HOME TODAY. WILL CONTINUE TO MONITOR.
--- NOTE | 2020-02-29 08:35 | EKG ---
[place] [address] ELECTROCARDIOGRAM REPORT Name: BREANA ZAPATA Room: [address] ADM IN .R.#: [id number] Admission: 02/27/20 Attend Phys: Melissa Tenorio, Discharge: Date of : 31 Date of Service: 02/27/20 1359 Report #: [id number] THIS REPORT FOR: //name// [facility] ED Test Date: 2020-02-27 Test Time: 13:59:21 Pat Name: BREANA ZAPATA Department: Room: [facility] Gender: F Antenna Machine Operator: CCD : 1930 Requested By: Lb Carrington Order Number: [id number] MD: Tomas Rodriguez Measurements Intervals [place] Rate: 71 P: 58 [place]: 165 QRS: -8 QRSD: 95 T: 48 QT: 399 QTc: 434 Interpretive Statements Sinus rhythm Compared to ECG 05/29/2016 10:40:50 No significant changes Electronically Signed On 02-29-2020 8:34:57 CDT by Tomas Rodriguez [email or web address] <ELECTRONICALLY SIGNED> By: Tomas Rodriguez MD, FACC 02/29/20 0834 1359 1359 Tomas Rodriguez MD, FAC /EPI
[2020-02-29 08:46] VITALS: BP 122/66
[2020-02-29 09:15] VITALS: BP 122/66
--- NOTE | 2020-02-29 11:32 | NUR ---
PT A&OX4 VSS. PT UP AD LEONARDO, GAIT STEADY. PT TO DC PRIOR TO 1100 FOR APPOINT. IV TO R HAND REMOVED PRIOR TO LEAVING UNIT. NO ACTIVE BLEEDING OR SWELLING. PT DRESSED INDEPENDENTLY. PT ATE BREAKFAST PRIOR TO LEAVING. PT AND SPOUSE STATE UNDERSTANDING OF DC INSTRUCTIONS AND FOLLOW UP INFORMATION PROVIDED. PT SPOUSE ALREADY PICKED UP RX PRIOR TO PICKING UP PT AT HOSPITAL. PT TRANSPORTED FROM UNIT IN BY NURSING STAFF. PT SPOUSE TOOK PT BELONGINGS AND WALKER TO VEHICLE.
--- NOTE | 2020-03-04 11:05 | CON ---
[address] [address] CONSULTATION Name: BREANA ZAPATA Room: [address] IN M.R.#: [id number] Admission: 02/27/20 Attend Phys: Melissa Tenorio MD Discharge: 02/29/20 Date of : 31 Report #: [id number] THIS REPORT FOR: //name// cc: Nerissa Velasquez Tara DO THIS REPORT FOR: //name// CC: Melissa Velasquez DO DATE OF SERVICE: 02/28/2020 REFERRING PHYSICIAN: Melissa Tenorio MD REASON FOR CONSULTATION: Rectal bleeding. IMPRESSION: 1. Rectal bleeding, most suspicious for anorectal pathology -- evaluate for hemorrhoidal bleeding versus less likely diverticular disease. 2. History of a previous transient ischemic attack, for which the patient is on chronic Eliquis for the same. 3. Status post upper and lower endoscopy in 2019 revealing internal hemorrhoids, which were banded at that time and a moderate amount of diverticulosis. RECOMMENDATIONS: 1. Since the patient has not had overt bleeding and has not been particularly anemic, we will proceed with flexible sigmoidoscopy today to evaluate for possible treatment of internal hemorrhoids. If there is evidence for external hemorrhoids, the patient will need to be either treated medically or need to be evaluated for surgical options regarding the same. 2. I have discussed the plans with the patient as well and she and her are agreeable to the same. HISTORY OF PRESENT ILLNESS: The patient is a very pleasant 89-year-old white female well known to me from previous hospitalization back in 03/2019, at which time she had some rectal bleeding. She underwent both upper and lower endoscopy at that time, which revealed a very tortuous esophagus and a large hiatal hernia, but upper endoscopy was not able to be completed secondary to some hypoxemia while we were trying to attempt to the endoscopy. Barium swallow was performed, which revealed a tortuous esophagus with acute angulation, is down to the distal esophagus. She has done well with regards to the same and underwent a colonoscopy at the same time, which revealed [place] [address] CONSULTATION Name: BREANA ZAPATA Room: [address]#: [id number] Admission: 02/27/20 Attend Phys: Melissa Tenorio MD Discharge: 02/29/20 Date of : 31 Report #: [id number] hemorrhoids as well as internal hemorrhoids, two of which were banded at that time. She also had a moderate amount of sigmoid diverticulosis. She has done well until recently when she started having some rectal bleeding a couple of days prior to admission. She has not had any major issue with her bowels or bowel frequency. She is on chronic Eliquis because of previous stroke. She is admitted to the hospital for further evaluation and treatment. ALLERGIES: BACTRIM OR SULFA MEDICATIONS. CURRENT MEDICATIONS: At home include atorvastatin, alprazolam, timolol, doxycycline, conjugated estrogens, glucosamine and chondroitin, omeprazole 20 mg twice daily, a multivitamin, Dulcolax stool softener, Synthroid, diltiazem, Lyrica and Lexapro as well as Eliquis. PAST MEDICAL AND SURGICAL HISTORY: Remarkable for underlying hypertension, hyperlipidemia, history of previous TIA in the past. She has a history of SVT as well, history of a brain tumor. She has had total hip surgery plus revision in the past. She has had elbow replacement, hip replacement, left cataract extraction, hysterectomy, cystocele and rectocele repair, cholecystectomy, bilateral knee arthroscopic surgeries, brain tumor. She has had a thyroidectomy as well. She has a large hiatal hernia and does not want to have any surgical intervention for the same. SOCIAL HISTORY: The patient does not smoke or drink. FAMILY HISTORY: Negative. PHYSICAL EXAMINATION: GENERAL: Very pleasant 89-year-old white female who is awake and alert. CARDIOPULMONARY: Revealed a regular rate and rhythm. LUNGS: Clear. ABDOMEN: Soft and not tender. No rebound or guarding noted. LABORATORY TESTS: Revealed a white count of 7.3, hemoglobin 14.3, platelet count 191,000. Her sodium was 141, potassium 3.6, chloride 105, bicarbonate 30, BUN 12, creatinine 0.8, total bilirubin 0.3, alkaline phosphatase 122, AST 21, ALT 18. CT scan of the abdomen and pelvis performed on 03/28 revealed a large hiatal hernia, which is unchanged from previous evaluation. Liver and spleen appeared to be normal. There was no ductal dilation. She does have a splenic cyst. Gallbladder is gone. Pancreas, adrenal glands and kidneys are normal. There was no evidence for any dilated loops. She has bilateral prosthetic hips. Small bowel loops are normal. Diverticulosis was noted. There are no constricting or annular lesions [place] [address] CONSULTATION Name: BREANA ZAPATA Room: [address] IN .R.#: [id number] Admission: 02/27/20 Attend Phys: Melissa Tenorio MD Discharge: 02/29/20 Date of : 31 Report #: [id number] There is large amount of stool within the colon. DISCUSSION: At the present time, the patient has had some rectal bleeding, which is likely related to anorectal pathology. We will proceed with flexible sigmoidoscopy today and make further recommendations thereafter. <ELECTRONICALLY SIGNED> By: Javier Hill DO 03/04/20 1105 1101 1152Javier Hill DO /nt
== END 2020-02-29 09:55 | disposition home or self-care (01) | DRG 378 ==
LOC: M.ERS 13:32 → M.2W 15:35 → M.TBA-ER 15:35 → M.2W 15:35 → M.3W 02-28 16:05
PROVIDERS: Family Medicine; ADMIT Internal Medicine; ATTEND Internal Medicine
PROC: 0DJD8ZZ Inspection of Lower Intestinal Tract, Via Natural or Artificial Opening Endoscopic (ICD-10-PCS; principal; 2020-02-28)
DX: K57.31 Diverticulosis of large intestine without perforation or abscess with bleeding (principal); D68.69 Other thrombophilia; I10 Essential (primary) hypertension; H54.62 Unqualified visual loss, left eye, normal vision right eye; K21.9 Gastro-esophageal reflux disease without esophagitis; J45.909 Unspecified asthma, uncomplicated; F41.9 Anxiety disorder, unspecified; I48.91 Unspecified atrial fibrillation; G62.9 Polyneuropathy, unspecified; K64.4 Residual hemorrhoidal skin tags; K62.5 Hemorrhage of anus and rectum; F41.0 Panic disorder [episodic paroxysmal anxiety]; Z88.1 Allergy status to other antibiotic agents; Z88.2 Allergy status to sulfonamides; Z90.49 Acquired absence of other specified parts of digestive tract; Z79.01 Long term (current) use of anticoagulants; Z86.73 Personal history of transient ischemic attack (TIA), and cerebral infarction without residual deficits; Z90.710 Acquired absence of both cervix and uterus; Z98.42 Cataract extraction status, left eye; Z98.41 Cataract extraction status, right eye

== ENCOUNTER 2020-05-04 17:47 | Emergency (ER) | payer OTHER ==
[~2020-05-04] VITALS: Ht 162.6 cm; Wt 64.4 kg
[~2020-05-04 17:47] MED LIST changes: +ANUSOL-HC25 MG RECTAL
[2020-05-04 18:32] LABS: URINE BILIRUBIN NEGATIVE (Negative); URINE BLOOD NEGATIVE (Negative); URINE CLARITY CLEAR; URINE COLOR YELLOW; URINE GLUCOSE-RANDOM NEGATIVE (Negative); URINE KETONES NEGATIVE (Negative); URINE LEUKOCYTES-REFLEX NEGATIVE (Negative); URINE NITRITE-REFLEX NEGATIVE (Negative); URINE PROTEIN NEGATIVE (Negative); URINE UROBILINOGEN 0.2 E.U./dl (0.2-1.0)
[2020-05-04 19:15] VITALS: BP 146/56
--- NOTE | 2020-05-05 14:00 | EKG ---
[place] [address] ELECTROCARDIOGRAM REPORT Name: BREANA ZAPATA Room: [facility]#: [id number] Admission: 05/04/20 Attend Phys: Discharge: 05/04/20 Date of : 31 Date of Service: 05/04/201801 Report #: [id number] THIS REPORT FOR: //name// [facility] ED Test Date: 2020-05-04 Test Time: 18:02:19 Pat Name: BREANA ZAPATA Department: Room: Gender: Multigraph Operator: [facility] 1930 Requested By: Morelia Huggins Order Number: [id number] MD: Tomas Rodriguez Measurements Intervals [place] Rate: 74 P: 57 W[place]: 182 QRS: -6 QRSD: 98 T: 49 QT: 431 QTc: 479 Interpretive Statements Sinus rhythm Compared to ECG 02/27/2020 13:59:21 No significant changes Electronically Signed On 05-05-2020 14:00:16 CDT by Tomas Rodriguez [email or web address] <ELECTRONICALLY SIGNED> By: Tomas Rodriguez MD, [facility] 05/05/20 1400 180 01 Tomas Rodriguez MD, [facility] /EPI
== END 2020-05-04 19:15 | disposition home or self-care (01) ==
LOC: M.ERS 17:47
PROVIDERS: Nurse Practitioner Family
DX: S51.012A Laceration without foreign body of left elbow, initial encounter (principal); S00.81XA Abrasion of other part of head, initial encounter; I10 Essential (primary) hypertension; I48.91 Unspecified atrial fibrillation; J45.909 Unspecified asthma, uncomplicated; K21.9 Gastro-esophageal reflux disease without esophagitis; G62.9 Polyneuropathy, unspecified; F41.9 Anxiety disorder, unspecified; Z96.643 Presence of artificial hip joint, bilateral; Z90.710 Acquired absence of both cervix and uterus; Z90.49 Acquired absence of other specified parts of digestive tract; Z86.73 Personal history of transient ischemic attack (TIA), and cerebral infarction without residual deficits; Z88.1 Allergy status to other antibiotic agents; W01.0XXA Fall on same level from slipping, tripping and stumbling without subsequent striking against object, initial encounter; Y93.89 Activity, other specified; Y92.89 Other specified places as the place of occurrence of the external cause; Y99.8 Other external cause status

== ENCOUNTER 2020-05-10 11:25 | Emergency (ER) | payer OTHER ==
[~2020-05-10] VITALS: Ht 165.1 cm; Wt 64.4 kg
[2020-05-10 13:02] LABS: ABSOLUTE BASOPHILS 0.1 thou/uL (0.0-0.2); ABSOLUTE EOSINOPHILS 0.1 thou/uL (0.0-0.7); ABSOLUTE MONOCYTES 0.5 thou/uL (0.0-1.2); ABSOLUTE NEUTROPHILS 3.6 thou/uL (1.6-8.1); BASOPHILS 0.9 %; EOSINOPHILS 2.1 %; HEMATOCRIT 44.7 % (37.0-47.0); HEMOGLOBIN 15.6 gm/dL (12.0-15.0); LYMPHOCYTES 31.9 %; MCH 31.1 pg (26.0-34.0); MCHC 34.9 g/dL (28.0-37.0); MCV 88.9 fL (80.0-100.0); MONOCYTES 8.3 %; MPV 8.9 fl. (7.2-11.1); NUCLEATED RBCS 0 /100WBC; PLATELET COUNT* 222 thou/uL (150-400); POLYS 56.8 %; RBC 5.02 mil/uL (4.20-5.00); RDW-CV 13.2 % (10.5-14.5); WBC 6.4 thou/uL (4.0-11.0)
[2020-05-10 13:08] LABS: URINE BILIRUBIN NEGATIVE (Negative); URINE BLOOD NEGATIVE (Negative); URINE CLARITY CLEAR; URINE COLOR YELLOW; URINE GLUCOSE-RANDOM NEGATIVE (Negative); URINE KETONES NEGATIVE (Negative); URINE LEUKOCYTES-REFLEX NEGATIVE (Negative); URINE NITRITE-REFLEX NEGATIVE (Negative); URINE PROTEIN NEGATIVE (Negative); URINE UROBILINOGEN 0.2 E.U./dl (0.2-1.0)
[2020-05-10 13:08] LABS: CALCIUM 8.6 mg/dL (8.5-10.1); CREATININE 0.9 mg/dL (0.6-1.3)
[2020-05-10 13:11] LABS: PROTIME 10.4 Seconds (9.20-11.50)
[2020-05-10 13:12] LABS: ALBUMIN 3.7 g/dL (3.4-5.0); TOTAL BILIRUBIN 0.3 mg/dL (<0.1-1.0); TOTAL PROTEIN 7.7 g/dL (6.4-8.2)
[2020-05-10] MEDS ORDERED: LEVOXYL125 MCG PO (16:17)
[2020-05-10 16:25] VITALS: BP 136/67
--- NOTE | 2020-05-10 16:41 | EKG ---
[place] [address] ELECTROCARDIOGRAM REPORT Name: BREANA ZAPATA Room: [facility]#: [id number] Admission: 05/10/20 Attend Phys: Discharge: 05/10/20 Date of : 31 Date of Service: 05/10/20 1209 Report #: [id number] THIS REPORT FOR: //name// [facility] ED Test Date: 2020-05-10 Test Time: 12:09:20 Pat Name: BREANA ZAPATA Department: Room: Gender: Production Counter: JEFFERY : 1930 Requested By: Victoria Mejía Order Number: [id number] MD: Chidi Owen Measurements Intervals [place] Rate: 62 P: 65 CT: 182 QRS: 5 QRSD: 106 T: 64 QT: 442 QTc: 449 Interpretive Statements Sinus rhythm Baseline wander in lead(s) II,III,aVF,V5 Compared to ECG 05/04/2020 18:02:19 No significant changes Electronically Signed On 05-10-2020 16:40:57 CDT by Chidi Owen [email or web address] <ELECTRONICALLY SIGNED> By: Chidi Owen MD, [facility] 05/10/20 1640 1209 1209 Chidi Owen MD, [facility] /EPI
== END 2020-05-10 16:25 | disposition home or self-care (01) ==
LOC: M.ERS 11:25
PROVIDERS: Personal Emergency Response Attendant
DX: E03.9 Hypothyroidism, unspecified (principal); R51 Headache; H57.12 Ocular pain, left eye; I10 Essential (primary) hypertension; J45.909 Unspecified asthma, uncomplicated; K21.9 Gastro-esophageal reflux disease without esophagitis; I48.91 Unspecified atrial fibrillation; G62.9 Polyneuropathy, unspecified; Z96.643 Presence of artificial hip joint, bilateral; Z90.710 Acquired absence of both cervix and uterus; Z86.73 Personal history of transient ischemic attack (TIA), and cerebral infarction without residual deficits; Z90.49 Acquired absence of other specified parts of digestive tract

== ENCOUNTER 2020-08-11 23:03 | Inpatient (IN) | payer OTHER ==
[~2020-08-11] VITALS: Ht 162.6 cm; Wt 66.2 kg
--- NOTE | ~2020-08-11 | OP ---
[address] [address] OPERATIVE REPORT Name: BREANA ZAPATA Room: [address] IN .R.#: [id number] Admission: 08/12/20 Attend Phys: Cheikh Glynn MD Discharge: Date of : 31 Report #: [id number] THIS REPORT FOR: //name// cc: Nerissa Velasquez Tara DO ~ DATE OF SERVICE: 08/13/2020 PREOPERATIVE DIAGNOSIS: Paraesophageal hernia. POSTOPERATIVE DIAGNOSIS: Paraesophageal hernia. OPERATION: Laparoscopic repair of paraesophageal hernia with mesh implantation with partial fundoplication. SURGEON: Jean Sánchez MD ANESTHESIA: General. ESTIMATED BLOOD LOSS: Minimal. SPECIMEN: None. DESCRIPTION OF PROCEDURE: After informed consent was obtained, the patient was brought to the operating room and placed supine. SCDs were placed and working, preoperative antibiotics were administered, general anesthesia was induced. The abdomen was prepped and draped in the usual sterile fashion. A 1 mm incision was made in the left upper quadrant. Veress needle was inserted. Pneumoperitoneum was established. A left periumbilical 12 mm trocar was placed under direct vision. I then placed a left-sided 5 mm trocar and 2 right-sided 5 mm ports. The Nathansen retractor was inserted through an epigastric incision. The liver was then retracted anteriorly and superiorly. This allowed visualization of the hiatus. The pars flaccida was incised. Cautery dissection was carried up to the right brenna, which was identified. She had a large paraesophageal hernia. I incised the hernia sac at the right brenna. Hernia sac was then fully reduced anteriorly and posteriorly. The distal esophagus was identified. The Paoli drain was then placed around the distal esophagus and the hernia sac was all taken down from the mediastinum. The stomach was then retracted to the right and the short gastric vessels were ligated using the LigaSure device. There was excellent hemostasis. Cruroplasty was then performed using 0 V-Loc suture. I sutured it posteriorly to anteriorly. This closed the diaphragm nicely, but [place] [address] OPERATIVE REPORT Name: BREANA ZAPATA Room: [address] IN [facility]#: [id number] Admission: 08/12/20 Attend Phys: Cheikh Glynn MD Discharge: Date of : 31 Report #: [id number] esophagus. I then inserted two 1 cm pledgets of a Phasix mesh and placed on each side of the crura. I then placed a 2-0 Ethibond suture through each pledget and through the diaphragm to secure the cruroplasty even more. A Jaime type fundoplasty was then performed by taking the fundus of the stomach and bring it to the right brenna. It was secured to the right brenna with 2-0 Ethibond sutures, taking a bite of the stomach and then suturing it to the right brenna. Two such sutures were placed. The liver was then placed back into its anatomic position. The ports were then removed under direct vision. Skin was closed with 4-0 Monocryl. The 12 mm port fascia was closed with a [id number] 0 Vicryl prior to closure. Incisions were dressed with Steri-Strips. Sterile dressings were applied. COMPLICATIONS: None. DISPOSITION: The patient was taken to recovery in satisfactory condition. By: 1013 1056Jean Sánchez MD /anna
[~2020-08-11 23:03] MED LIST changes: +LEVOXYL125 MCG PO
[2020-08-11 23:05] VITALS: BP 139/70
[2020-08-11 23:54] LABS: HEMATOCRIT 44.7 % (37.0-47.0); HEMOGLOBIN 14.9 gm/dL (12.0-15.0); MCH 29.5 pg (26.0-34.0); MCHC 33.3 g/dL (28.0-37.0); MCV 88.7 fL (80.0-100.0); MPV 7.9 fl. (7.2-11.1); NUCLEATED RBCS 0 /100WBC; PLATELET COUNT* 257 thou/uL (150-400); RBC 5.04 mil/uL (4.20-5.00); RDW-CV 14.6 % (10.5-14.5); WBC 13.7 thou/uL (4.0-11.0)
[2020-08-11 23:58] LABS: CALCIUM 8.4 mg/dL (8.5-10.1); POTASSIUM 3.3 mmol/L (3.5-5.1)
[2020-08-12 00:06] LABS: PROTIME 10.3 Seconds (9.20-11.50)
[2020-08-12 00:15] LABS: ALBUMIN 3.4 g/dL (3.4-5.0); MAGNESIUM 1.9 mg/dL (1.8-2.4); TOTAL BILIRUBIN 0.4 mg/dL (<0.1-1.0); TOTAL PROTEIN 7.4 g/dL (6.4-8.2)
[2020-08-12 00:57] LABS: ABSOLUTE LYMPHOCYTES 1.8 thou/uL (0.8-5.3); ABSOLUTE MONOCYTES 0.3 thou/uL (0.0-1.2); ABSOLUTE NEUTROPHILS 11.6 thou/uL (1.6-8.1)
[2020-08-12 00:58] LABS: PLATELET ESTIMATE ADEQUATE
[2020-08-12 02:46] LABS: URINE BILIRUBIN NEGATIVE (Negative); URINE BLOOD NEGATIVE (Negative); URINE CLARITY CLEAR; URINE COLOR YELLOW; URINE GLUCOSE-RANDOM NEGATIVE (Negative); URINE KETONES 2+ (Negative); URINE LEUKOCYTES-REFLEX NEGATIVE (Negative); URINE NITRITE-REFLEX NEGATIVE (Negative); URINE PROTEIN NEGATIVE (Negative); URINE UROBILINOGEN 0.2 E.U./dl (0.2-1.0)
[2020-08-12 04:05] VITALS: BP 164/77
[2020-08-12 05:43] VITALS: BP 155/80
[2020-08-12 08:00] VITALS: BP 122/70
--- NOTE | 2020-08-12 11:41 | EKG ---
[place] [address] ELECTROCARDIOGRAM REPORT Name: BREANA ZAPATA Room: [address] ADM IN ..#: [id number] Admission: 08/12/20 Attend Phys: Cheikh Glynn, Discharge: Date of : 31 Date of Service: 08/11/20 2305 Report #: [id number] THIS REPORT FOR: //name// [facility] ED Test Date: 2020-08-11 Test Time: 23:05:36 Pat Name: BREANA ZAPATA Department: Room: [facility] Gender: F Certified Phlebotomy Technician: UNKNOWN : 1930 Requested By: Niecy Cruz Order Number: [id number] MD: Bob Salvador Measurements Intervals [place] Rate: 102 P: 59 [place]: 163 QRS: -38 QRSD: 95 T: 34 QT: 396 QTc: 516 Interpretive Statements Sinus tachycardia Ventricular bigeminy Inferior infarct, old Anterior infarct, old Prolonged QT interval Compared to ECG 05/10/2020 12:09:20 Ventricular premature complex(es) now present Prolonged QT interval now present Sinus rhythm no longer present Electronically Signed On 08-12-2020 11:41:34 GROUP INSURANCE SPECIAL AGENT by Bob Salvador [email or web address] <ELECTRONICALLY SIGNED> By: Bob Salvador MD, FACC 08/12/20 1141 2305 2305 Bob Salvador MD, [facility] /EPI
[2020-08-12 12:01] VITALS: BP 137/97
[2020-08-12 15:54] VITALS: BP 144/72
[2020-08-12 20:00] VITALS: BP 141/72
[2020-08-13 04:36] LABS: ALBUMIN 2.9 g/dL (3.4-5.0); CALCIUM 8.2 mg/dL (8.5-10.1); CREATININE 1.1 mg/dL (0.6-1.3); MAGNESIUM 1.7 mg/dL (1.8-2.4); PHOSPHORUS* 3.4 mg/dL (2.5-4.9); TOTAL BILIRUBIN 0.5 mg/dL (<0.1-1.0); TOTAL PROTEIN 6.7 g/dL (6.4-8.2)
[2020-08-13 04:42] LABS: POTASSIUM 2.5 mmol/L (3.5-5.1)
[2020-08-13 04:50] VITALS: BP 165/73
--- NOTE | 2020-08-13 07:49 | EKG ---
[place] [address] ELECTROCARDIOGRAM REPORT Name: BREANA ZAPATA Room: [address] ADM IN M.R.#: [id number] Admission: 08/12/20 Attend Phys: Cheikh Glynn, Discharge: Date of : 31 Date of Service: 08/13/2014 Report #: [id number] THIS REPORT FOR: //name// [facility] Test Date: 2020-08-13 Test Time: 06:14:16 Pat Name: BREANA ZAPATA Department: Room: [address] Gender: F Tracer Powder Blender: LIZZIE : 1930 Requested By: Tessa Caruso Order Number: [id number] MD: Tomas Rodriguez Measurements Intervals [place] Rate: 107 P: 73 [place]: 147 QRS: -19 QRSD: 92 T: -1 QT: 347 QTc: 463 Interpretive Statements Sinus tachycardia Borderline left axis deviation Compared to ECG 08/11/2020 23:05:36 Ventricular premature complex(es) no longer present Myocardial infarct finding no longer present Prolonged QT interval no longer present Electronically Signed On 08-13-2020 7:49:03 HEDGE FUND PRINCIPAL by Tomas Rodriguez [email or web address] <ELECTRONICALLY SIGNED> By: Tomas Rodriguez MD, FACC 08/13/20 0749 3 3 Tomas Rodriguez MD, FACC /EPI
[2020-08-13 11:45] VITALS: BP 139/67
[2020-08-13 16:00] VITALS: BP 140/73
[2020-08-13 20:00] VITALS: BP 159/82
[2020-08-14] VITALS: BP 146/70
[2020-08-14 04:00] VITALS: BP 149/79
[2020-08-14 04:46] LABS: ABSOLUTE LYMPHOCYTES 1.2 thou/uL (0.8-5.3); ABSOLUTE NEUTROPHILS 14.6 thou/uL (1.6-8.1); BASOPHILS 0.1 %; EOSINOPHILS 0.1 %; HEMATOCRIT 35.5 % (37.0-47.0); MCH 29.6 pg (26.0-34.0); MCHC 33.3 g/dL (28.0-37.0); MCV 88.9 fL (80.0-100.0); MONOCYTES 6.1 %; MPV 8.8 fl. (7.2-11.1); NUCLEATED RBCS 0 /100WBC; POLYS 86.7 %; RBC 3.99 mil/uL (4.20-5.00); RDW-CV 14.8 % (10.5-14.5); WBC 16.8 thou/uL (4.0-11.0)
[2020-08-14 04:51] LABS: HEMOGLOBIN 11.8 gm/dL (12.0-15.0); PLATELET COUNT* 177 thou/uL (150-400)
[2020-08-14 05:39] LABS: ALBUMIN 2.3 g/dL (3.4-5.0); CALCIUM 7.3 mg/dL (8.5-10.1); CREATININE 0.7 mg/dL (0.6-1.3); TOTAL BILIRUBIN 0.4 mg/dL (<0.1-1.0); TOTAL PROTEIN 5.7 g/dL (6.4-8.2)
[2020-08-14 05:43] LABS: POTASSIUM 2.9 mmol/L (3.5-5.1)
[2020-08-14 08:30] VITALS: BP 142/61
[2020-08-14 11:00] VITALS: BP 134/58
[2020-08-14 16:00] VITALS: BP 148/68
[2020-08-14 20:00] VITALS: BP 141/65
[2020-08-15] VITALS: BP 149/78
[2020-08-15 04:00] VITALS: BP 144/70
[2020-08-15 08:15] VITALS: BP 135/56
[2020-08-15 12:00] VITALS: BP 137/61
[2020-08-15 14:38] LABS: ABSOLUTE BASOPHILS 0.1 thou/uL (0.0-0.2); ABSOLUTE EOSINOPHILS 0.1 thou/uL (0.0-0.7); ABSOLUTE LYMPHOCYTES 1.2 thou/uL (0.8-5.3); ABSOLUTE NEUTROPHILS 12.7 thou/uL (1.6-8.1); BASOPHILS 0.5 %; EOSINOPHILS 0.5 %; HEMATOCRIT 31.7 % (37.0-47.0); HEMOGLOBIN 10.4 gm/dL (12.0-15.0); LYMPHOCYTES 8.1 %; MCH 29.8 pg (26.0-34.0); MCHC 32.9 g/dL (28.0-37.0); MCV 90.4 fL (80.0-100.0); MONOCYTES 6.7 %; MPV 10.1 fl. (7.2-11.1); NUCLEATED RBCS 0 /100WBC; PLATELET COUNT* 179 thou/uL (150-400); POLYS 84.2 %; RBC 3.51 mil/uL (4.20-5.00); RDW-CV 14.8 % (10.5-14.5); WBC 15.1 thou/uL (4.0-11.0)
[2020-08-15 14:47] LABS: CALCIUM 7.6 mg/dL (8.5-10.1); CREATININE 0.7 mg/dL (0.6-1.3); MAGNESIUM 1.7 mg/dL (1.8-2.4); TOTAL BILIRUBIN 0.4 mg/dL (<0.1-1.0); TOTAL PROTEIN 5.1 g/dL (6.4-8.2)
[2020-08-15 17:04] VITALS: BP 143/56
[2020-08-15 20:00] VITALS: BP 157/65
[2020-08-16] VITALS: BP 147/59
[2020-08-16 04:00] VITALS: BP 109/58
[2020-08-16 08:00] VITALS: BP 108/45
[2020-08-16 12:05] VITALS: BP 109/55
[2020-08-16] MEDS ORDERED: ZOFRAN4 MG PO (14:35)
[2020-08-16] MEDS ORDERED: NORCO 5-325 TA1 EAC2 PO (14:35)
[2020-08-16 15:54] VITALS: BP 109/55
[2020-08-16 16:02] VITALS: BP 109/55
== END 2020-08-16 16:47 | disposition home health service (06) | DRG 326 ==
LOC: M.ERS 23:03 → M.2W 08-12 02:59 → M.TBA-ER 08-12 02:59 → M.2W 08-12 04:50
PROVIDERS: Emergency Medicine; Internal Medicine; ADMIT Internal Medicine; ATTEND Internal Medicine
DX: K44.0 Diaphragmatic hernia with obstruction, without gangrene (principal); K56.2 Volvulus; K31.1 Adult hypertrophic pyloric stenosis; R65.10 Systemic inflammatory response syndrome (SIRS) of non-infectious origin without acute organ dysfunction; K31.0 Acute dilatation of stomach; F41.9 Anxiety disorder, unspecified; G62.9 Polyneuropathy, unspecified; I10 Essential (primary) hypertension; K57.90 Diverticulosis of intestine, part unspecified, without perforation or abscess without bleeding; K21.9 Gastro-esophageal reflux disease without esophagitis; K31.89 Other diseases of stomach and duodenum; E03.9 Hypothyroidism, unspecified; I48.91 Unspecified atrial fibrillation; F32.9 Major depressive disorder, single episode, unspecified; Z96.622 Presence of left artificial elbow joint; Z96.643 Presence of artificial hip joint, bilateral; Z20.828 Contact with and (suspected) exposure to other viral communicable diseases; Z90.710 Acquired absence of both cervix and uterus; Z90.49 Acquired absence of other specified parts of digestive tract; Z85.841 Personal history of malignant neoplasm of brain; Z98.42 Cataract extraction status, left eye; Z98.41 Cataract extraction status, right eye; Z79.899 Other long term (current) drug therapy; Z86.73 Personal history of transient ischemic attack (TIA), and cerebral infarction without residual deficits

== ENCOUNTER 2021-01-04 15:36 | Emergency (ER) | payer OTHER ==
[~2021-01-04] VITALS: Ht 162.6 cm; Wt 61.2 kg
[~2021-01-04 15:36] MED LIST changes: +NORCO 5-325 TA1 EAC2 PO
[2021-01-04] MEDS ORDERED: NEURONTIN100 MG PO (16:07)
[2021-01-04 16:20] LABS: ABSOLUTE BASOPHILS 0.1 thou/uL (0.0-0.2); ABSOLUTE EOSINOPHILS 0.1 thou/uL (0.0-0.7); ABSOLUTE LYMPHOCYTES 2.2 thou/uL (0.8-5.3); ABSOLUTE MONOCYTES 0.6 thou/uL (0.0-1.2); ABSOLUTE NEUTROPHILS 6.5 thou/uL (1.6-8.1); BASOPHILS 0.9 %; EOSINOPHILS 1.6 %; HEMATOCRIT 39.3 % (37.0-47.0); HEMOGLOBIN 12.9 gm/dL (12.0-15.0); LYMPHOCYTES 23.5 %; MCH 28.2 pg (26.0-34.0); MCHC 32.8 g/dL (28.0-37.0); MCV 85.8 fL (80.0-100.0); MONOCYTES 6.2 %; MPV 8.7 fl. (7.2-11.1); NUCLEATED RBCS 0 /100WBC; PLATELET COUNT* 180 thou/uL (150-400); POLYS 67.8 %; RBC 4.58 mil/uL (4.20-5.00); RDW-CV 14.9 % (10.5-14.5); WBC 9.6 thou/uL (4.0-11.0)
[2021-01-04 16:26] LABS: CALCIUM 8.6 mg/dL (8.5-10.1); CREATININE 0.9 mg/dL (0.6-1.3)
[2021-01-04 16:26] LABS: URINE BILIRUBIN NEGATIVE (Negative); URINE BLOOD NEGATIVE (Negative); URINE CLARITY SL CLOUDY; URINE COLOR YELLOW; URINE GLUCOSE-RANDOM NEGATIVE (Negative); URINE KETONES NEGATIVE (Negative); URINE LEUKOCYTES-REFLEX 1+ (Negative); URINE NITRITE-REFLEX NEGATIVE (Negative); URINE PROTEIN NEGATIVE (Negative); URINE UROBILINOGEN 0.2 E.U./dl (0.2-1.0)
[2021-01-04 16:31] LABS: ALBUMIN 3.2 g/dL (3.4-5.0); TOTAL BILIRUBIN 0.2 mg/dL (<0.1-1.0); TOTAL PROTEIN 7.2 g/dL (6.4-8.2)
[2021-01-04 16:31] LABS: PROTIME 10.3 Seconds (9.20-11.50)
[2021-01-04 16:35] LABS: SQUAMOUS >10 Many /LPF (0-3)
[2021-01-04 16:36] LABS: CASTS None Seen /LPF (None Seen); CRYSTALS None Seen /LPF (None Seen); MUCUS None Seen strn/LPF (None Seen); URINE RBC 0-2 Rare /HPF (0-2); URINE WBC-REFLEX 0-5 Rare /HPF (0-5)
[2021-01-04] MEDS ORDERED: HYDROCODON-ACE1 EAC7 PO (16:36)
[2021-01-04 17:04] VITALS: BP 115/49
--- NOTE | 2021-01-05 09:49 | EKG ---
[place] [address] ELECTROCARDIOGRAM REPORT Name: BREANA ZAPATA Room: [facility]#: [id number] Admission: 01/04/21 Attend Phys: Discharge: 01/04/21 Date of : 32 Date of Service: 01/04/21 1555 Report #: [id number] THIS REPORT FOR: //name// [facility] ED Test Date: 2021-01-04 Test Time: 15:55:05 Pat Name: BREANA ZAPATA Department: Room: Gender: F Camera Control Operator: CD : 1930 Requested By: Lb Carrington Order Number: [id number] MD: Avinash Carlin Measurements Intervals [place] Rate: 58 P: 69 [place]: 163 QRS: 10 QRSD: 100 T: 38 QT: 440 QTc: 433 Interpretive Statements Sinus rhythm Baseline wander in lead(s) V2 Compared to ECG 08/13/2020 06:14:16 Sinus tachycardia no longer present Electronically Signed On 01-05-2021 9:48:54 CDT by Avinash Carlin [email or web address] <ELECTRONICALLY SIGNED> By: Sami Carlin MD, [facility] 01/05/21 0948 1555 1555 Sami Carlin MD, [facility] /EPI
== END 2021-01-04 17:06 | disposition home or self-care (01) ==
LOC: M.ERS 15:36
PROVIDERS: Family Medicine
DX: S82.841A Displaced bimalleolar fracture of right lower leg, initial encounter for closed fracture (principal); I10 Essential (primary) hypertension; K21.9 Gastro-esophageal reflux disease without esophagitis; J45.909 Unspecified asthma, uncomplicated; E89.0 Postprocedural hypothyroidism; I48.91 Unspecified atrial fibrillation; Z96.643 Presence of artificial hip joint, bilateral; Z90.710 Acquired absence of both cervix and uterus; Z86.73 Personal history of transient ischemic attack (TIA), and cerebral infarction without residual deficits; Z88.1 Allergy status to other antibiotic agents; Z88.2 Allergy status to sulfonamides; X50.1XXA Overexertion from prolonged static or awkward postures, initial encounter; Y93.89 Activity, other specified; Y92.89 Other specified places as the place of occurrence of the external cause; Y99.8 Other external cause status